=== PATIENT | male | born 1950 | race Caucasian/White ===

== ENCOUNTER → 2022-02-15 | Day surgery (SDC) | payer MEDICARE ==
[~2022-02-15] VITALS: Ht 190.5 cm; Wt 98.0 kg
[~2022-02-15] MED LIST: IRON325 M1 PO; METFORMIN HCL500 MG PO; PROSCAR5 MG PO; TAMSULOSIN HCL0.4 MG PO; VITAMIN B-12 IM
[2022-02-15 08:32] LABS: HCT 42.4 % (42.0-52.0); HGB 14.4 g/dl (13.2-18.0); MCH 30.9 pg (25.0-31.0); MPV 9.4 fL (6.0-9.5); RBC 4.66 M/uL (4.70-6.00); RDW 14.7 % (11.5-14.0); WBC 4.8 K/uL (4.0-10.5)
[2022-02-15 08:50] LABS: BUN/CREAT RATIO (CALC) 8.9 RATIO; CREATININE 0.9 mg/dL (0.67-1.17); POTASSIUM 4.3 mmol/L (3.5-5.1)
== END | disposition home or self-care (01) ==
LOC: FAS 07:47
PROVIDERS: Surgery
DX: D50.9 Iron deficiency anemia, unspecified (principal); K29.60 Other gastritis without bleeding; K21.00 Gastro-esophageal reflux disease with esophagitis, without bleeding; K57.30 Diverticulosis of large intestine without perforation or abscess without bleeding; E11.9 Type 2 diabetes mellitus without complications; N40.0 Benign prostatic hyperplasia without lower urinary tract symptoms
CPT/HCPCS: 36415; 80048; J2250; J2704; J7120